=== PATIENT | male | born 1965 | race Caucasian/White ===

== ENCOUNTER 2018-11-19 11:37 | Emergency (ER) | payer BC ==
[~2018-11-19] VITALS: Ht 180.3 cm; Wt 108.9 kg
[~2018-11-19 11:37] MED LIST: FLAGYL500 MG PO; LEVAQUIN500 MG PO; NORVASC5 MG PO; PRINIVIL20 MG PO; TOPROL XL50 MG PO
[2018-11-19] MEDS ORDERED: TETANUS/DIPHTHERIA TOX ADULT 0.5 ML SYR IM ONE (12:30)
--- NOTE | 2018-11-19 15:08 | Diagnostic Imaging Report ---
EXAM: KNEE RIGHT THREE VIEWS DATE: 11/19/2018 12:21 PM INDICATION:Knee popped with pain COMPARISON: None FINDINGS: 3 views of the right knee show no displaced fracture or dislocation. There is mild tricompartmental degenerative change with small posterior patellar osteophytes and anterior patellar enthesophyte. Joint spaces are maintained. Soft tissues unremarkable. IMPRESSION: No acute bony abnormality. Mild tricompartmental degenerative change. Signed by: Dr. Ke Roman M.D. on 11/19/2018 3:04 PM
== END 2018-11-19 15:26 | disposition home or self-care (01) ==
LOC: ER 11:37
DX: M25.561 Pain in right knee (principal); S83.511A Sprain of anterior cruciate ligament of right knee, initial encounter; X50.1XXA Overexertion from prolonged static or awkward postures, initial encounter; Y99.0 Civilian activity done for income or pay; I10 Essential (primary) hypertension; M54.9 Dorsalgia, unspecified; G89.29 Other chronic pain
CPT/HCPCS: 90471; 90714; 99284